=== PATIENT | male | born 1955 | race Two or more races ===

== ENCOUNTER 2020-08-29 14:31 | Emergency (ER) | payer MEDICAID ==
[~2020-08-29] VITALS: Ht 185.4 cm; Wt 72.6 kg
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
[2020-08-29] MEDS ORDERED: NORCO 5-325 TA1 EAC1 ORAL (15:28)
[2020-08-29] MEDS ORDERED: IBUPROFEN600 M1 ORAL (15:28)
--- NOTE | 2020-08-29 15:36 | NUR ---
ED Nurse Note: XRAY at bedside
--- NOTE | 2020-08-29 15:58 | NUR ---
ER DISCHARGE NOTE: Patient is cleared to be discharged per ERMD, pt is aox4, on room air, with stable vital signs. pt was given dc and prescription instructions, pt was able to verbalize understanding, pt id band remvoved.. pt is able to ambulate with steady gait. pt took all belonging
[2020-08-29 15:59] VITALS: BP 158/91
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
== END 2020-08-29 16:00 | disposition home or self-care (01) ==
LOC: EDBD 15:05 → EMR 15:05
DX: M25.562 Pain in left knee (principal)
CPT/HCPCS: 73562; Z7502; 99283